=== PATIENT | female | born 1995 | race Caucasian/White ===

== ENCOUNTER 2016-11-30 06:00 | Inpatient (IN) ==
[2016-11-30] MEDS ORDERED: REGLAN PO ONE (06:06)
[2016-11-30] MEDS ORDERED: PEPCID PO ONE (06:06)
[2016-11-30] MEDS ORDERED: PEPCID IV PRN (06:06)
[2016-11-30] MEDS ORDERED: ZOFRAN IV PRN (06:06)
[2016-11-30] MEDS ORDERED: STADOL IV PRN (06:06)
[2016-11-30] MEDS ORDERED: PEPCID PO PRN (06:06)
[2016-11-30] MEDS ORDERED: TYLENOL PO PRN (06:06)
[2016-11-30] MEDS ORDERED: KEFZOL 1 GM/D5W 1 GM/50 ML IVPB IV PRN (06:06)
[2016-11-30] MEDS ORDERED: SODIUM CHLORIDE 0.9% INJ SCH (06:15)
[2016-11-30] MEDS ORDERED: PITOCIN 30 UNITS/LR 30 UNITS/500 ML IV.SOLN IV SCH (06:15)
[2016-11-30] MEDS ORDERED: LR 1,000 ML IV SCH (06:15)
[2016-11-30 07:01] LABS: MANUAL DIFF NEEDED? NO
[2016-11-30 07:01] LABS: URINE SOURCE VOIDED
[2016-11-30 07:08] LABS: BASO% 0.3 % (0.0-0.8); EOS# 0.05 X1000 (0.0-0.7); EOS% 0.4 % (0.0-10.0); HEMATOCRIT 34.8 % (37.0-47.0); HEMOGLOBIN 11.9 g/dL (12.0-16.0); IMM GRAN# 0.23 X1000 (0.0-0.04); IMM GRAN% 1.9 % (0.0-0.5); LYMPH# 2.39 X1000 (1.2-3.4); MCH 29.8 PG (27-31); MCHC 34.2 g/dL (33-37); MONO# 0.77 X1000 (0.11-0.59); MONO% 6.4 % (1.7-9.3); MPV 11.1 FL (7.4-10.4); PLT 222 X1000 (130-400)
[2016-11-30 07:39] LABS: BILIRUBIN URINE NEGATIVE (NEGATIVE); BLOOD URINE NEGATIVE (NEGATIVE); CLARITY SL. CLOUDY (CLEAR); COLOR YELLOW; GLUCOSE URINE NEGATIVE (NEGATIVE); LEUKOCYTES URINE 2+ (NEGATIVE); NITRITE URINE NEGATIVE (NEGATIVE); PROTEIN URINE NEGATIVE (NEGATIVE); UROBILINOGEN URINE NORMAL
[2016-11-30] MEDS ORDERED: XYLOCAINE-MPF 1% INJ ONE (12:07)
[2016-11-30] MEDS ORDERED: MINERAL OIL TOP ONE (12:31)
[2016-11-30] MEDS ORDERED: PITOCIN IM PRN (14:24)
[2016-11-30] MEDS ORDERED: PITOCIN 20 UNITS/LR 20 UNITS/1,000 ML IV.SOLN IV SCH (14:24)
[2016-11-30] MEDS ORDERED: XYLOCAINE-MPF 1% INJ PRN (14:24)
[2016-11-30] MEDS ORDERED: PITOCIN 30 UNITS/LR 30 UNITS/500 ML IV.SOLN IV ONE (14:24)
[2016-11-30] MEDS ORDERED: M-M-R II VACCINE SUBQ ONE (14:24)
[2016-11-30] MEDS ORDERED: BOOSTRIX VACCINE IM ONE (14:24)
[2016-11-30] MEDS ORDERED: CYTOTEC PO PRN (14:24)
[2016-11-30] MEDS ORDERED: BENADRYL PO PRN (14:24)
[2016-11-30] MEDS ORDERED: NORCO-5 PO PRN (14:24)
[2016-11-30] MEDS ORDERED: PERCOCET-5 PO PRN (14:24)
[2016-11-30] MEDS ORDERED: BENADRYL IV PRN (14:24)
[2016-11-30] MEDS ORDERED: MINERAL OIL PO PRN (14:24)
[2016-11-30] MEDS ORDERED: HYDROXYZINE IM PRN (14:24)
[2016-11-30] MEDS ORDERED: HYDROXYZINE PO PRN (14:24)
[2016-11-30] MEDS ORDERED: AMBIEN PO PRN (14:24)
[2016-11-30] MEDS ORDERED: PERI MEDS (DERMOPLAST/NUPERCAINAL/TUCKS) MISC PRN (14:24)
[2016-11-30] MEDS ORDERED: PERCOCET-10 PO PRN (14:24)
[2016-11-30] MEDS ORDERED: NORCO-10 PO PRN (14:24)
--- NOTE | 2016-11-30 16:59 | OPERATIVE NOTE ---
PROCEDURE DATE: 11/30/2016 DELIVERY NOTE: DELIVERING PHYSICIAN: Antoine Beatty MD. TYPE OF DELIVERY: Spontaneous controlled vaginal delivery. ANESTHESIA: IV sedation. FINDINGS: At 14:02, a 7 pound female infant was delivered in occiput anterior presentation. There was a nuchal cord x2. Apgars were 9 at 1 minute and 10 at 5 minutes. SUMMARY: Shahla Murray is a 21-year-old, 2, para 1-0-0-1, at term gestation. Her blood type is A positive. Rubella immune. Hepatitis B surface antigen, HIV, and group B strep were negative. Her has been without complications. She was admitted to the hospital this morning for elective induction of labor. She was 3 cm upon admission. IV Pitocin was begun. The membranes ruptured, revealing clear fluid. She received IV sedation. She progressed to labor quickly without signs of distress or dystocia. She became complete and began pushing. Very quickly she crowned. At that point she was placed in dorsal lithotomy position. Perineum was prepped and draped in usual fashion. Spontaneous controlled vaginal delivery occurred. Nuchal cord x2 was reduced. The shoulders and body delivered without complications. Oropharynx was bulb suctioned. The cord was clamped and cut. The infant was handed to the nurses for further care and evaluation. Cord blood was obtained. Placenta was spontaneously delivered and was intact. There was a midline vaginal tear which was infiltrated with Xylocaine and oversewn using Vicryl suture. Blood loss approximately 150 mL. There were no complications. Patient remained in the LDR recovering without difficulty. cc: Antoine Beatty MD
[2016-11-30] MEDS: PERICOLACE PO SCH (22:11)
[2016-12-01] MEDS: MOTRIN PO PRN ×2 (05:32→16:50)
[2016-12-01 06:02] LABS: HEMATOCRIT 33.5 % (37.0-47.0); HEMOGLOBIN 11.3 g/dL (12.0-16.0); MCH 29.9 PG (27-31); MCHC 33.7 g/dL (33-37); MCV 88.6 FL (81-99); MPV 11.3 FL (7.4-10.4); RBC 3.78 XMIL (4.2-5.4)
[2016-12-01] MEDS: PERICOLACE PO SCH (20:21)
[2016-12-02 08:50] VITALS: BP 123/77
[2016-12-02] MEDS: MOTRIN PO PRN (08:59)
== END 2016-12-02 11:50 | disposition home or self-care (01) ==
LOC: P.LD 06:03
PROVIDERS: ADMIT Obstetrics & Gynecology; ATTEND Obstetrics & Gynecology